=== PATIENT | female | born 1960 | race Caucasian/White ===

== ENCOUNTER → 2016-09-28 | Outpatient (CLI) | payer OTHER ==
--- NOTE | 2016-09-28 09:22 | DX ---
Right Elbow, Three Views Clinical Indication: Fall. Evaluate for fracture. Comparisons: None relevant. Findings: Bony alignment of the elbow is anatomic. Joint space is well maintained. There is a joint e ffusion. There is no visualized fracture, but an occult fracture is not excluded. Impression: Joint effusion. An occult fracture is not excluded. Results discussed by Dr. Eldridge with Dr. Babcock. Additional clinical information is the patient hav ing previous films with a joint effusion but suspected occult fracture. The patient is currently bein g treated as if they have a fracture that is nonvisualized.
== END ==
LOC: BMCIMAGING 08:18
PROVIDERS: ATTEND Family Medicine
DX: S59.901A Unspecified injury of right elbow, initial encounter (principal); M25.421 Effusion, right elbow

== ENCOUNTER → 2017-03-13 | Outpatient (CLI) | payer OTHER | LOC: BMCIMAGING 09:55 | PROVIDERS: ATTEND Family Medicine | DX: M25.511 Pain in right shoulder (principal) ==

== ENCOUNTER 2017-08-20 18:44 | Emergency (ER) | payer OTHER ==
[2017-08-20 18:48] VITALS: RESP 16; TEMP 98.6
[2017-08-20] MEDS ORDERED: NITROGLYCERIN 0.4 MG BTL SL PRN (18:56)
--- NOTE | 2017-08-20 18:56 | EDPHY ---
H & P Time Seen by Provider: 08/20/17 18:48 HPI/ROS: CHIEF COMPLAINT: Foreign body sensation in the throat HISTORY OF PRESENT ILLNESS: Patient was eating hamburger at 6:40 p.m. when she felt a chunk of it gets stuck in her throat. She feels like it is just be under sternal notch. She can breathe and swallow liquids. She is not coughing. Normal voice. REVIEW OF SYSTEMS: Eye: No symptoms ENT: HPI Cardiac: No chest pain Pulmonary: HPI Abdomen: No vomiting Musculoskeletal: No symptoms Skin: No symptoms Neuro: No symptoms Constitutional: No fever or recent illnesses A comprehensive 10 point review of systems is otherwise negative aside from elements mentioned in the history of present illness. PAST MEDICAL HISTORY: Negative Social history: Nonsmoker General Appearance: Alert and conversant, cooperative. Eyes: No scleral icterus. ENT, Mouth: No angioedema, pharynx clear, uvula midline. No stridor or drooling. Respiratory: Normal respiratory effort, breath sounds equal, lungs are clear to auscultation. Cardiovascular: Regular rate and rhythm. Gastrointestinal: Abdomen is soft and non tender. Neurological: Alert and oriented x3. Ambulatory. Skin: Warm and dry, no rashes. Musculoskeletal: No visible deformity. Psychiatric: Not agitated. Emergency Department course/MDM: Sublingual nitroglycerin and oral liquid trial. 1920: Feels better, thinks it is gone, normal voice, can swallow 100%. Foreign body sensation seemed to essentially have resolved. I think it is appropriate to discharge and have outpatient GI follow-up, warned she needs evaluation to see if she has a narrowing or stenosis which needs addressing. Smoking Status: Never smoked Constitutional: Initial Vital Signs Temperature (C) 37.0 C 08/20/17 18:45 Heart Rate 71 08/20/17 18:45 Respiratory Rate 16 08/20/17 18:45 Blood Pressure 133/85 H 08/20/17 18:45 O2 Sat (%) 98 08/20/17 18:45 O2 Delivery Mode Room Air Allergies/Adverse Reactions: No Known Allergies Allergy (Unverified 08/20/17 18:44) Home Medications: Medication Instructions Recorded NK [No Known Home Meds] 08/20/17 Medical Decision Making - Data Points Medications Given: Nitroglycerin (Nitrostat) 0.4 mg SL Q5M PRN PRN Reason: Chest Pain Last Admin: 08/20/17 18:59 Dose: 0.4 mg Departure - Departure Disposition: Home, Routine, Self-Care Clinical Impression: Esophageal foreign body Qualifiers: Encounter type: initial encounter Qualified Code(s): T18.108A - Unspecified foreign body in esophagus causing other injury, initial encounter Condition: Good Instructions: Esophageal Foreign Body (ED) Referrals: Angelo Love MD [Medical Doctor] - As per Instructions (Please follow-up with Dr. Love in the next 2 weeks for evaluation of possible esophageal narrowing.)
[2017-08-20 19:44] VITALS: BP 106/72; PULSE 70; O2SAT 97
== END 2017-08-20 19:42 | disposition home or self-care (01) ==
DX: T18.128A Food in esophagus causing other injury, initial encounter (principal); X58.XXXA Exposure to other specified factors, initial encounter

== ENCOUNTER → 2018-06-25 | Outpatient (CLI) | payer OTHER | LOC: BMCIMAGING 10:36 | PROVIDERS: ATTEND Family Medicine | DX: S92.354A Nondisplaced fracture of fifth metatarsal bone, right foot, initial encounter for closed fracture (principal) ==

== ENCOUNTER → 2018-07-20 | Outpatient (CLI) | payer OTHER | LOC: BMCIMAGING 13:01 | PROVIDERS: ATTEND Emergency Medicine | DX: S92.351A Displaced fracture of fifth metatarsal bone, right foot, initial encounter for closed fracture (principal); X50.0XXD Overexertion from strenuous movement or load, subsequent encounter ==

== ENCOUNTER → 2018-12-09 | Outpatient (CLI) | payer OTHER | LOC: FIMAGING 08:52 | PROVIDERS: ATTEND Obstetrics & Gynecology | DX: Z13.820 Encounter for screening for osteoporosis (principal); M85.89 Other specified disorders of bone density and structure, multiple sites ==